=== PATIENT | female | born 2005 | race Caucasian/White ===

== ENCOUNTER 2024-03-10 01:40 | Emergency (ER) | payer OTHER ==
[~2024-03-10] VITALS: Ht 162.6 cm; Wt 65.8 kg
[2024-03-10 01:47] VITALS: BP 114/62; PULSE 83; RESP 18; TEMP 98.6; O2SAT 98
[2024-03-10] MEDS ORDERED: CARB15DR61 OT (02:17)
[2024-03-10 02:30] VITALS: BP 114/62; PULSE 83; RESP 18; TEMP 98.6; O2SAT 98
== END 2024-03-10 03:19 | disposition home or self-care (01) ==
LOC: MED 01:40
DX: H61.22 Impacted cerumen, left ear (principal); Z79.899 Other long term (current) drug therapy
CPT/HCPCS: 99282